=== PATIENT | female | born 1995 | race Two or more races ===

== ENCOUNTER 2020-09-21 10:24 | Emergency (ER) | payer OTHER ==
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
[2020-09-21 13:23] VITALS: BP 124/77
== END 2020-09-21 13:56 | disposition home or self-care (01) ==
LOC: ED 10:24
DX: T74.11XA Adult physical abuse, confirmed, initial encounter (principal); S00.83XA Contusion of other part of head, initial encounter; S00.432A Contusion of left ear, initial encounter; S10.93XA Contusion of unspecified part of neck, initial encounter; Y04.2XXA Assault by strike against or bumped into by another person, initial encounter; Y93.89 Activity, other specified; Y07.01 Husband, perpetrator of maltreatment and neglect
CPT/HCPCS: 99281; 99282

== ENCOUNTER 2020-11-24 13:59 | Emergency (ER) | payer OTHER ==
[2020-11-24 14:13] VITALS: BP 169/80
--- NOTE | 2020-11-24 15:06 | ED Physician Documentation ---
History of Present Illness - Stated complaint Stated Complaint: L ANKLE PX - Chief complaint Chief Complaint: Trauma Ext - History obtained from History obtained from: Patient - History of Present Illness Timing: Yesterday Pain level max: 6 Pain level now: 4 - Additonal information Additional information: Patient is a 25-year-old female who presents to the emergency department stating that she was walking yesterday when she tripped and rolled her left ankle and left foot. Now has pain with walking. Most of the pain is on the lateral aspect of the left foot and towards the toes. Better with rest. Worse with movement. No head, neck, back pain. No numbness or tingling. Review of Systems Constitutional: denies: Fever : denies: Now EGA Skin: denies: Rash Musculoskeletal: denies: Neck pain, Back pain Neurologic: denies: Headache PD PAST MEDICAL HISTORY - Past Medical History Past Medical History: No - Past Surgical History Past Surgical History: No - Present Medications Home Medications: Ambulatory Orders Medication Instructions Recorded Confirmed Ibuprofen [Motrin] 800 mg PO Q8H PRN #30 tablet 11/24/20 - Allergies Allergies/Adverse Reactions: Allergies Allergy/AdvReac Type Severity Reaction Status Date / Time No Known Drug Allergies Allergy Verified 11/24/20 14:13 - Social History Does the pt smoke?: No Smoking Status: Never smoker Does the pt drink ETOH?: No Does the pt have substance abuse?: No - Immunizations Immunizations are current?: Yes PD ED PE NORMAL - Vitals Vital signs reviewed: Yes - General General: Alert and oriented X 3, No acute distress - Derm Derm: Warm and dry - Extremities Extremities: Other (Left ankle and foot - Mild tenderness to palpation over the lateral malleolus and fifth metatarsal. No swelling. No bruising. Neurovascularly intact. Full range of motion present.) - Neuro Neuro: Alert and oriented X 3 - Psych Psych: Normal mood, Normal affect Results - Vitals Vitals: Vital Signs - 24 hr 11/24/20 14:09 Temperature 36.8 C Heart Rate 81 Respiratory 16 Rate Blood Pressure 169/80 H O2 Saturation 98 Oxygen O2 Source Room air - Rads (name of study) Left ankle x-ray Radiology: Final report received, EMP read contemporaneously, See rad report (No acute abnormality) Left foot x-ray Radiology: Final report received, EMP read contemporaneously, See rad report (No acute abnormality) PD MEDICAL DECISION MAKING - ED course Complexity details: reviewed results, re-evaluated patient, considered differential, d/w patient ED course: No acute findings on x-ray. Appears to be a foot sprain. Placed in a postopera tive shoe for comfort. Mild ankle sprain as well. Will place on Motrin for home. Patient brought her own crutches to the emergency department. Patient counseled regarding signs and symptoms for which I believe and urgent re- evaluation would be necessary. Patient with good understanding of and agreement to plan and is comfortable going home at this time This document was made in part using voice recognition software. While efforts are made to proofread this document, sound alike and grammatical errors may occur. Departure - Departure Disposition: Home, Self Care Clinical Impression: Sprain of foot, left Qualifiers: Encounter type: initial encounter Qualified Code(s): S93.602A - Unspecified sprain of left foot, initial encounter Condition: Good Instructions: ED Sprain Foot Follow-Up: your,doctor in 1 week for recheck [Other] Prescriptions: Ibuprofen [Motrin] 800 mg PO Q8H PRN #30 tablet PRN Reason: PAIN &/OR FEVER Comments: You may bear weight as tolerated. You can use the crutches at home as needed. You can also use the postoperative shoe to help with discomfort in the foot. Your x-rays did not show any acute abnormalities today. Follow-up with your doctor for recheck in 1 week.
--- NOTE | 2020-11-24 15:07 | XRAY Report ---
PROCEDURE: Ankle 3 View LT INDICATIONS: Trauma TECHNIQUE: 4 views of the ankle were acquired. COMPARISON: None FINDINGS: Bones: No fractures or dislocations. Ankle mortise is normally aligned. No suspicious bony lesions . Soft tissues: No tibiotalar joint effusion. Achilles tendon appears normal. IMPRESSION: No acute fracture. No osseous lesion. If symptoms and/or clinical suspicion for patholog y continue, further assessment with repeat plain films, or advanced imaging (e.g., CT, MRI, or bone s can) is recommended for further assessment. Reviewed by: Ze Evans MD on 11/24/2020 2:06 PM [facility] Approved by: Ze Evans MD on 11/24/2020 2:06 PM [facility] Station ID: [id number]
--- NOTE | 2020-11-24 15:07 | XRAY Report ---
PROCEDURE: Foot 3 View LT INDICATIONS: Trauma TECHNIQUE: 3 views of the foot were acquired. COMPARISON: None FINDINGS: Bones: No fractures or dislocations. No suspicious bony lesions. Soft tissues: No tibiotalar joint effusion. Achilles tendon appears normal. IMPRESSION: No acute fracture. No osseous lesion. If symptoms and/or clinical suspicion for pathology continue, f urther assessment with repeat plain films, or advanced imaging (e.g., CT, MRI, or bone scan) is recom mended for further assessment. Reviewed by: Ze Evans MD on 11/24/2020 2:06 PM [facility] Approved by: Ze Evans MD on 11/24/2020 2:06 PM [facility] Station ID: [id number]
== END 2020-11-24 15:33 | disposition home or self-care (01) ==
LOC: ED 13:59
DX: S93.602A Unspecified sprain of left foot, initial encounter (principal); S93.402A Sprain of unspecified ligament of left ankle, initial encounter; X50.1XXA Overexertion from prolonged static or awkward postures, initial encounter; Y93.01 Activity, walking, marching and hiking
CPT/HCPCS: 99281; 99283

== ENCOUNTER 2020-12-17 19:14 | Emergency (ER) | payer OTHER ==
[2020-12-17 19:23] VITALS: BP 135/85
[2020-12-17] MEDS ORDERED: PSEUDOEPHEDRINE 30 MG TABLET PO PRN (19:39)
--- NOTE | 2020-12-17 19:40 | ED Physician Documentation ---
PD HPI HEENT - Stated complaint Stated Complaint: NAUSEA,SOA - Chief complaint Chief Complaint: Resp - History obtained from History obtained from: Patient - Additional information Additional information: Otherwise healthy 25-year-old woman has been sick for about 2 days with nonproductive cough, feeling like phlegm is stuck in her chest. No fevers. She is trying to get but not late on her menses. She has had nausea. She has nasal congestion. No known sick contacts. She is immunized against Covid. Review of Systems Constitutional: reports: Reviewed and negative Eyes: reports: Reviewed and negative Ears: reports: Reviewed and negative Nose: reports: Reviewed and negative PD PAST MEDICAL HISTORY - Past Surgical History Past Surgical History: No - Present Medications Home Medications: Ambulatory Orders Medication Instructions Recorded Confirmed Guaifenesin/Pseudoephedrne HCl 1 each PO BID PRN #20 ea 12/17/20 [Mucinex D ER 600-60 mg Tablet] guaiFENesin/CODEINE [Robitussin AC] 5 - 10 ml PO Q6H PRN #120 ml 12/17/20 - Allergies Allergies/Adverse Reactions: Allergies Allergy/AdvReac Type Severity Reaction Status Date / Time No Known Drug Allergies Allergy Verified 12/17/20 19:23 - Social History Does the pt smoke?: No Smoking Status: Never smoker Does the pt drink ETOH?: No Does the pt have substance abuse?: No - Immunizations Immunizations are current?: Yes PD ED PE NORMAL - Vitals Vital signs reviewed: Yes - General General: Alert and oriented X 3, No acute distress - HEENT HEENT: Other (Oropharynx is normal, sinuses nontender,) - Neck Neck: Supple, no meningeal sign, No bony TTP - Cardiac Cardiac: RRR, No murmur - Respiratory Respiratory: No respiratory distress, Clear bilaterally - Abdomen Abdomen: Normal bowel sounds, Soft, Non tender - Back Back: No CVA TTP, No spinal TTP - Derm Derm: Normal color, Warm and dry - Extremities Extremities: No edema, No calf tenderness / cord - Neuro Neuro: Alert and oriented X 3, Normal speech Results - Vitals Vitals: Vital Signs - 24 hr 12/17/20 19:18 Temperature 37.3 C Heart Rate 100 Respiratory 16 Rate Blood Pressure 135/85 H O2 Saturation 100 Oxygen O2 Source Room air - Labs Labs: Laboratory Tests 12/17/20 19:45 Urine HCG, Qual NEGATIVE - Rads (name of study) 2v chest Radiology: EMP read contemporaneously (normal) Departure - Departure Disposition: 01 Home, Self Care Clinical Impression: Upper respiratory tract infection Qualifiers: URI type: unspecified viral URI Qualified Code(s): J06.9 - Acute upper respiratory infection, unspecified Condition: Good Record reviewed to determine appropriate education?: Yes Instructions: ED Viral Syndrome Prescriptions: Guaifenesin/Pseudoephedrne HCl [Mucinex D ER 600-60 mg Tablet] 1 each PO BID PRN #20 ea PRN Reason: congestion guaiFENesin/CODEINE [Robitussin AC] 5 - 10 ml PO Q6H PRN #120 ml PRN Reason: Cough Comments: You have a Covid test pending. You need to self quarantine until the result is done and negative. Do not leave your house. Do not get near anybody. The results should be done in 48 to 72 hours. We will call with a positive result, the fastest way to get a negative result for confirmation though is to go to the hospital website at [email or web address], click on the my [email or web address] tab and sign up for the patient portal. If any friends or family get sick and would like to have a Covid test done, but do not have signs or symptoms that would necessitate being hospitalized, we encourage testing through our coronavirus swabbing station, call [phone] to schedule an appointment. Forms: Activity restrictions
[2020-12-17 19:56] LABS: HCG UR QUAL NEGATIVE
--- NOTE | 2020-12-17 20:11 | XRAY Report ---
PROCEDURE: Chest 2 View X-Ray INDICATIONS: cough TECHNIQUE: 2 view(s) of the chest. COMPARISON: None. FINDINGS: Surgical changes and devices: None. Lungs and pleura: No pleural effusions or pneumothorax. Lungs are clear. Mediastinum: Mediastinal contours are normal. Heart size is normal. Bones and chest wall: No suspicious bony abnormalities. Soft tissues appear unremarkable. IMPRESSION: No acute cardiopulmonary abnormality Reviewed by: Kade Ding on 12/17/2020 8:10 PM PDT Approved by: Kade Ding on 12/17/2020 8:10 PM PDT Station ID: [id number]
== END 2020-12-17 20:31 | disposition home or self-care (01) ==
LOC: ED 19:14
DX: J06.9 Acute upper respiratory infection, unspecified (principal); B97.89 Other viral agents as the cause of diseases classified elsewhere; Z20.822 Contact with and (suspected) exposure to COVID-19
CPT/HCPCS: 71046; 81025; 87635; 99283; 99284; A9270

== ENCOUNTER 2021-01-10 15:47 | Emergency (ER) | payer OTHER ==
[2021-01-10 15:54] VITALS: BP 127/69
[2021-01-10] MEDS ORDERED: diphenhydrAMINE 25 MG CAPSULE PO STA (15:58)
--- NOTE | 2021-01-10 17:25 | ED Physician Documentation ---
History of Present Illness - Stated complaint Stated Complaint: BEE STING/ALLERGIC - Chief complaint Chief Complaint: Allergic Rx - History obtained from History obtained from: Patient - History of Present Illness Timing: How many hours ago (3) Pain level now: 0 - Additonal information Additional information: This is a 25-year-old who was stung by a bee on her left scalp approximately 3 hours ago. She still has a little bit of stinging pain in it but she had no other reaction. No shortness of breath or swelling or itching. She was concerned because when she was much younger she had a bee sting on her leg that swelled up significantly.No history of anaphylactic reaction. Review of Systems Throat: denies: Sore throat Respiratory: denies: Dyspnea, Wheezing GI: denies: Nausea, Vomiting Skin: denies: Rash PD PAST MEDICAL HISTORY - Past Medical History Past Medical History: No - Past Surgical History Past Surgical History: No - Present Medications Home Medications: Ambulatory Orders Medication Instructions Recorded Confirmed No Known Home Medications 01/10/21 01/10/21 - Allergies Allergies/Adverse Reactions: Allergies Allergy/AdvReac Type Severity Reaction Status Date / Time No Known Drug Allergies Allergy Verified 01/10/21 15:53 - Social History Does the pt smoke?: No Smoking Status: Never smoker Does the pt drink ETOH?: No Does the pt have substance abuse?: No - Immunizations Immunizations are current?: Yes PD ED PE NORMAL - Vitals Vital signs reviewed: Yes - General General: Alert and oriented X 3, No acute distress, Well developed/nourished, Other (Patient was sleeping but aroused easily.) - HEENT HEENT: Atraumatic, Pharynx benign (Voice is normal.), Other (Her hair is covering the spot where she got stung but there is a slight palpable swelling. No stinger is there.) - Neck Neck: No adenopathy - Cardiac Cardiac: RRR, No murmur - Respiratory Respiratory: No respiratory distress - Derm Derm: Normal color, Warm and dry, No rash, Other (No hives) - Neuro Neuro: Alert and oriented X 3, stone banker 2-12 intact, No motor deficit, No sensory deficit, Normal speech Results - Vitals Vitals: Vital Signs - 24 hr 01/10/21 15:51 Temperature 36.1 C L Heart Rate 68 Respiratory 16 Rate Blood Pressure 127/69 O2 Saturation 98 Oxygen O2 Source Room air PD MEDICAL DECISION MAKING - ED course ED course: You may ice the sting site. Take Benadryl if you have any itching up to 2 tablets every 4 hours. Departure - Departure Disposition: 01 Home, Self Care Clinical Impression: Insect bites and stings Instructions: Bites Stings Insect Follow-Up: MAHI De Los Santos [Provider Group] Comments: May ice the scalp. May take Benadryl up to 2 tablets every 4-6 hours if needed for itching. In the event of getting stung in the future, apply ice and take Benadryl and watch for any reaction.
== END 2021-01-10 17:54 | disposition home or self-care (01) ==
LOC: ED 15:47
DX: T63.441A Toxic effect of venom of bees, accidental (unintentional), initial encounter (principal)
CPT/HCPCS: 99282; A9270